=== PATIENT | female | born 1985 | race Hispanic/Latino ===

== ENCOUNTER 2020-03-21 21:36 | Emergency (ER) | payer BC, MEDICAID, OTHER ==
[2020-03-22] MEDS ORDERED: ONDANSETRON HCL 4 MG/2 ML VIAL ONE (00:20)
[2020-03-22] MEDS ORDERED: METOCLOPRAMIDE 10 MG/2 ML VIAL ONE (00:22)
[2020-03-22] MEDS ORDERED: DiphenhydrAMINE HCL 50 MG/ML VIAL ONE (00:33)
== END 2020-03-22 01:16 | disposition home or self-care (01) ==
LOC: EDH 21:36
DX: O99.011 Anemia complicating pregnancy, first trimester (principal); O26.891 Other specified pregnancy related conditions, first trimester; B34.9 Viral infection, unspecified; M54.5 Low back pain; R11.0 Nausea; Z98.890 Other specified postprocedural states; Z3A.01 Less than 8 weeks gestation of pregnancy
CPT/HCPCS: 36415; 80053; 81001; 85025; 87880; 96374; 96375; 99284; J1200; J2405; J2765

== ENCOUNTER 2020-03-23 11:51 | Observation (INO) | payer MEDICAID, OTHER ==
[~2020-03-23] VITALS: Ht 147.3 cm; Wt 66.7 kg
[2020-03-23 12:42] LABS: BASOPHILS % (AUTO) 0.3 % (0.0-5.0); EOSINOPHILS % (AUTO) 0.8 % (0.0-8.0); HEMATOCRIT 28.7 % (36-48); MEAN CORPUSCULAR HEMOGLOBIN 16.3 pg (27.0-33.0); MEAN CORPUSCULAR HGB CONC 27.2 g/dL (32.0-36.0); MEAN CORPUSCULAR VOLUME 59.9 fL (79-99); NEUTROPHILS % (AUTO) 73.6 % (40.0-77.0); PLATELET COUNT (AUTO) 215 K/uL (130-400); RED BLOOD CELL COUNT(AUTO) 4.79 MIL/uL (4.00-5.50); RED CELL DISTRIBUTION WIDTH 20.2 % (11.0-15.5); WHITE BLOOD COUNT (AUTO) 6.3 K/uL (4.8-10.8)
[2020-03-23 13:07] LABS: CREATININE 0.7 mg/dL (0.5-1.5); POTASSIUM 3.6 mmol/L (3.5-5.1)
[2020-03-23 13:12] LABS: ALBUMIN 3.3 g/dL (3.5-5.0); BILIRUBIN,TOTAL 0.3 mg/dL (0.2-1.0); TOTAL PROTEIN, SERUM 7.4 g/dL (6.0-8.3)
--- NOTE | 2020-03-23 13:18 | NUR ---
DCP: HOME Sw spoke to pt's mother Honey Osborne [phone]. Mother reports that pt lives with her 2 minor daughters who are have been with with their father since pt began feeling sick. Pt is unemployed, independent, drives, no DME or in home care services. Pt has no PCP. Plan is home at al Addendum: 03/23/20 at 1320 by TENZIN VANCE Amended: Links added.
[2020-03-23 15:54] VITALS: BP 99/58
--- NOTE | 2020-03-23 18:00 | NUR ---
ORDERS RECEIVED TO TRANSFER PRIMARY CARE TO DR. AYAKA OH, [facility]. DR. OH INFORMED AND STATED THERE WAS NO OB INDICATION TO TAKE OVER CARE FOR THE PT AT THIS TIME, UNLESS ANY ABNORMAL FINDINGS RELATED OBSTETRICALLY.
[2020-03-23 19:28] VITALS: BP 102/69
--- NOTE | 2020-03-23 20:00 | NUR ---
ISIAH DORADO NP INFORMED OF PT STATUS AND NEW ORDERS RECEIVED AT THIS TIME.
[2020-03-23 23:00] VITALS: BP 106/61
[2020-03-24 03:49] VITALS: BP 111/65
[2020-03-24 06:36] LABS: BASOPHILS % (AUTO) 0.4 % (0.0-5.0); EOSINOPHILS % (AUTO) 0.9 % (0.0-8.0); HEMATOCRIT 31.4 % (36-48); LYMPHOCYTES % (AUTO) 26.3 % (21.0-51.0); MEAN CORPUSCULAR HEMOGLOBIN 17.5 pg (27.0-33.0); MEAN CORPUSCULAR VOLUME 62.3 fL (79-99); MONOCYTES % (AUTO) 10.4 % (3.0-13.0); NEUTROPHILS % (AUTO) 61.3 % (40.0-77.0); PLATELET COUNT (AUTO) 194 K/uL (130-400); RED BLOOD CELL COUNT(AUTO) 5.04 MIL/uL (4.00-5.50); RED CELL DISTRIBUTION WIDTH 23.4 % (11.0-15.5); WHITE BLOOD COUNT (AUTO) 5.4 K/uL (4.8-10.8)
[2020-03-24 07:10] VITALS: BP 101/67
[2020-03-24 07:15] LABS: CREATININE 0.6 mg/dL (0.5-1.5); POTASSIUM 3.9 mmol/L (3.5-5.1)
--- NOTE | 2020-03-24 09:30 | NUR ---
PATIENT WAS DISCHARGED BY DR. AYAKA OH AND SCRIPT GIVEN FOR VITAMINS AND IRON AND ENCOURAGED PATIENT TO FOLLOW UP WITH AN OB/GN DOCTOR OF HER CHOICE FOR CARE.
[2020-03-24] MEDS: ONDANSETRON 4 MG TABLET PO PRN ×2 (11:00→19:58)
[2020-03-24 11:08] VITALS: BP 98/58
[2020-03-24 16:14] VITALS: BP 110/74
[2020-03-24 16:16] VITALS: BP 94/57
--- NOTE | 2020-03-24 19:10 | NUR ---
REPORT GIVEN TO DUC MARTÍNEZ AND PATIENT CARE TRANSFERED AT THIS TIME.
[2020-03-24 19:32] VITALS: BP 101/52
--- NOTE | 2020-03-24 19:42 | NUR ---
PATIENT; PATIENT ADVICE TO GO TO HER DOCTOR OF CHOICE FOR FOLLOW UP CHECK UP. DISCHARGES INSTRUCTION GIVEN. PRESCRIPTION GIVEN. Yanira STEEL MD ADVICE PATIENT TO FOLLOW UP WITH HER DOCTOR TO HAVE A THOROUGH CHECK UP. PATIENT VERBALIZES UNDERSTANDING.
--- NOTE | 2020-03-24 20:20 | NUR ---
PATIENT WAS TAKEN VIA W/C TO [facility]ILY [facility] AND WAS DISCHARGED TO HER MOTHER. PATIENT IS STABLE AND DENIES PAIN.
== END 2020-03-24 20:20 | disposition home or self-care (01) ==
LOC: EDH 11:51 → EDHIP 11:52 → WSH 13:40
PROVIDERS: ADMIT Internal Medicine Critical Care Medicine; ATTEND Internal Medicine Critical Care Medicine
DX: O99.011 Anemia complicating pregnancy, first trimester (principal); D64.9 Anemia, unspecified; Z90.49 Acquired absence of other specified parts of digestive tract; Z3A.01 Less than 8 weeks gestation of pregnancy
CPT/HCPCS: 36415 ×2; 36430; 71046; 76801; 80048; 80053; 85025 ×2; 85378; 86850; 86900; 86901; 86922; 99285; G0378 ×14; P9016; Q0162 ×2

== ENCOUNTER 2020-04-27 12:24 | Emergency (ER) | payer MEDICAID, OTHER | END 2020-04-27 14:05 | disposition home or self-care (01) | LOC: EDH 12:24 | DX: O20.0 Threatened abortion (principal); Z3A.11 11 weeks gestation of pregnancy; Z98.890 Other specified postprocedural states; Z90.49 Acquired absence of other specified parts of digestive tract | CPT/HCPCS: 76801 ==

== ENCOUNTER 2020-12-12 09:49 | Emergency (ER) | payer MEDICAID ==
[2020-12-12] MEDS ORDERED: SODIUM CHLORIDE 0.9% 1000ML 1,000 ML IV ONE (10:18)
[2020-12-12 10:32] LABS: BASOPHILS % (AUTO) 0.7 % (0.0-5.0); EOSINOPHILS % (AUTO) 5.7 % (0.0-8.0); HEMATOCRIT 40.8 % (36-48); LYMPHOCYTES % (AUTO) 20.4 % (21.0-51.0); MEAN CORPUSCULAR HEMOGLOBIN 26.9 pg (27.0-33.0); MEAN CORPUSCULAR HGB CONC 31.9 g/dL (32.0-36.0); MEAN CORPUSCULAR VOLUME 84.5 fL (79-99); PLATELET COUNT (AUTO) 211 K/uL (130-400); RED BLOOD CELL COUNT(AUTO) 4.83 MIL/uL (4.00-5.50); RED CELL DISTRIBUTION WIDTH 19.5 % (11.0-15.5); WHITE BLOOD COUNT (AUTO) 8.3 K/uL (4.8-10.8)
[2020-12-12 10:37] LABS: CREATININE 0.7 mg/dL (0.5-1.5)
[2020-12-12 10:42] LABS: ALBUMIN 3.6 g/dL (3.5-5.0); BILIRUBIN,TOTAL 0.3 mg/dL (0.2-1.0); TOTAL PROTEIN, SERUM 7.9 g/dL (6.0-8.3)
[2020-12-12 11:05] LABS: INR 1.03 (0.85-1.15); PROTHROMBIN TIME 11.2 SEC (9.6-11.6)
[2020-12-12 11:06] LABS: PARTIAL THROMBOPLASTIN TIME 27.3 SEC (26.3-35.5)
[2020-12-12] MEDS ORDERED: MEDROXYPROGESTERONE ACET 5 MG TAB PO ONE (13:45)
== END 2020-12-12 13:07 | disposition home or self-care (01) ==
LOC: EDH 09:49
DX: N93.9 Abnormal uterine and vaginal bleeding, unspecified (principal); R11.0 Nausea; R42 Dizziness and giddiness; Z90.49 Acquired absence of other specified parts of digestive tract; Z98.890 Other specified postprocedural states
CPT/HCPCS: 36415; 80053; 85025; 85610; 85730; 86850; 86900; 86901; 96360; 96361; 99283; J7030

== ENCOUNTER 2025-06-20 14:38 | Emergency (ER) | payer BC, MEDICAID ==
[~2025-06-20] VITALS: Ht 147.3 cm; Wt 77.1 kg
--- NOTE | 2025-06-20 14:53 | EKG ---
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
--- NOTE | 2025-06-20 15:17 | HMCIMG ---
EXAM: CR Chest, 1 View. CLINICAL HISTORY: gbw COMPARISON: 03/23/20 21:48 EDT DX - CHEST 2VWS FINDINGS: Patient's pelvis was shielded during exam. Cholecystectomy clips noted. LUNGS: The lungs show no infiltrate or other acute finding. PLEURAL SPACES: No pleural effusion or pneumothorax. MEDIASTINUM: The cardiomediastinal silhouette is within normal limits. BONES: No aggressive appearing osseous lesion seen. IMPRESSION: No acute cardiopulmonary pathology is evident. /[place]
[2025-06-20 15:28] LABS: IMMATURE GRANULOCYTE ABSOLUTE 0.06 K/uL (0-1); NUCLEATED RED BLOOD CELLS 0.0 % (0.0-0.19); PLATELET COUNT (AUTO) 316 K/uL (130-400); RED BLOOD CELL COUNT(AUTO) 4.76 MIL/uL (4.00-5.50); RED CELL DISTRIBUTION WIDTH 16.9 % (11.0-15.5); WHITE BLOOD COUNT (AUTO) 10.7 K/uL (4.8-10.8)
[2025-06-20 15:37] LABS: CREATININE 0.6 mg/dL (0.5-1.0); GLOMERULAR FILTR. RATE CALC 116.0 mL/min (>90); GLUCOSE,RANDOM 130.0 mg/dL (70-105); SODIUM SERUM 140.0 mmol/L (136-145); UREA NITROGEN, BLOOD 9.0 mg/dL (7-18)
[2025-06-20 15:38] LABS: INR 1.02 (0.85-1.15)
[2025-06-20 15:46] LABS: ASPARTATE AMINOTRANSFERASE 27.0 U/L (10-37); TOTAL PROTEIN, SERUM 6.7 g/dL (6.0-8.3)
[2025-06-20 17:00] VITALS: BP 110/60; PULSE 73; RESP 19; TEMP 98.3; O2SAT 100
--- NOTE | 2025-06-20 17:20 | ERN ---
ED Note History of Present Illness Stated Complaint: LOW HGB Chief Complaint: Abnormal Labs Time Seen by MD: 14:40 Dictation: 39-year-old female referred by her primary care doctor for outpatient labs that showed low hemoglobin patient reports she believes it was six but unsure does not have the paperwork. Patient does reports she has been feeling weak over the past few days but no active bleeding. Allergies: Coded Allergies: No Known Allergies (Verified Allergy, Unknown, 03/22/20) No Known Drug Allergies (Unverified Allergy, Unknown, 03/22/20) Home Meds No Active Prescriptions or Reported Meds Past Medical History Past Medical History: Other Additional Past Medical Hx: LUPUS Surgical History: Review of System Dictation Constitutional: Negative for fever,chills, and weight loss Eyes: Negative for injury, pain,redness, and discharge ENT: Negative for injury,pain or swelling Cardiovascular: Negative for chest pain, palpitations, and edema Respiratory: Negative for shortness of breath, cough, and wheezing, Abdomen/GI: Negative for abdominal pain, nausea, vomiting, diarrhea, and constipation Back: Negative for injury and pain : Negative for injury, bleeding and discharge MS/Extremity: Negative for injury and deformity Skin: Negative for rash, and discoloration Neuro: For HPI Initial Vital Sign VS Vital Signs Date Time Temp Pulse Resp B/P (MAP) Pulse Ox O2 Delivery O2 Flow Rate FiO2 06/20/25 14:39 98.2 107 18 132/69 99 Room Air Physical Exam Dictation General: awake, alert, NAD Head/Face: Normocephalic, atraumatic Eyes: PERRL, EOMI, vision at baseline ENT: oral cavity clear, TMs clear, no signs of infection Neck: Trachea midline, supple, no nuchal rigidity Cardiovascular: RRR, normal S1/S2, No MRGs, no JVD Respiratory: CTAB, no respiratory distress, No rales or wheezes Abdomen: Soft, non-tender, non-distended, normal bowel sounds, no guarding or rebound. Skin: Warm, dry, normal turgor, no rash MS/Extremity: Pulses equal, no cyanosis, neurovascular intact, FROM Neuro: COAx4, GCS 15, strength 5/5, CN 2-12 intact, normal cerebellar exam, normal gait, Psych: Normal behavior, mood, and affect normal Results (Laboratory/Radiology) Laboratory/Radiology Laboratory Tests Test 06/20/25 15:02 White Blood Count 10.7 K/uL (4.8-10.8) Red Blood Count 4.76 MIL/uL (4.00-5.50) Hemoglobin 9.8 g/dL (12.0-16.0) L Hematocrit 33.0 % (36-48) L Mean Corpuscular Volume 69.3 fL (79-99) L Mean Corpuscular Hemoglobin 20.6 pg (27.0-33.0) L Mean Corpuscular Hemoglobin Concent 29.7 g/dL (32.0-36.0) L Red Cell Distribution Width 16.9 % (11.0-15.5) H Platelet Count 316 K/uL (130-400) Mean Platelet Volume 10.0 fL (7.5-10.5) Immature Granulocyte % (Auto) 0.6 % (0-1) Neutrophils (%) (Auto) 65.4 % (40.0-77.0) Lymphocytes (%) (Auto) 24.3 % (21.0-51.0) Monocytes (%) (Auto) 5.3 % (3.0-13.0) Eosinophils (%) (Auto) 4.0 % (0.0-8.0) Basophils (%) (Auto) 0.4 % (0.0-5.0) Neutrophils # (Auto) 7.0 K/uL (1.8-7.7) Lymphocytes # (Auto) 2.6 K/uL (1.0-4.8) Monocytes # (Auto) 0.6 K/uL (0.1-1.0) Eosinophils # (Auto) 0.43 K/uL (0.00-0.70) Basophils # (Auto) 0.04 K/uL (0.00-0.20) Absolute Immature Granulocyte (auto 0.06 K/uL (0-1) Nucleated Red Blood Cells 0.0 % (0.0-0.19) Red Blood Cell Morphology See comments Prothrombin Time 10.8 SEC (9.6-11.6) Prothromb Time International Ratio 1.02 (0.85-1.15) Activated Partial Thromboplast Time 27.9 SEC (26.3-35.5) Sodium Level 140 mmol/L (136-145) Potassium Level 4.0 mmol/L (3.5-5.1) Chloride Level 106 mmol/L (101-111) Carbon Dioxide Level 27 mmol/L (21-32) Blood Urea Nitrogen 9 mg/dL (7-18) Creatinine 0.6 mg/dL (0.5-1.0) Glomerular Filtration Rate Calc 116 mL/min (>90) Random Glucose 130 mg/dL (70-105) H Total Calcium 7.9 mg/dL (8.5-10.1) L Total Bilirubin 0.2 mg/dL (0.2-1.0) Direct Bilirubin 0.1 mg/dL (0.0-0.3) Aspartate Amino Transf (AST/SGOT) 27 U/L (10-37) Alanine Aminotransferase (ALT/SGPT) 24 U/L (12-78) Alkaline Phosphatase 94 U/L (50-136) Troponin I High Sensitivity 9 ng/L (4-50) Total Protein 6.7 g/dL (6.0-8.3) Albumin 2.7 g/dL (3.5-5.0) L Labs Reviewed?: Yes ED Course ED Course Orders Procedure Category Date Status Time 12 Lead Ekg Tracing- EKG 06/20/25 Complete Technical 14:44 Basic Metabolic Panel LAB 06/20/25 Complete 14:44 Cbc With Differential LAB 06/20/25 Complete 14:44 Hepatic Function Panel LAB 06/20/25 Complete 14:44 Pt And Ptt LAB 06/20/25 Complete 14:44 Troponin I High LAB 06/20/25 Complete Sensitivity 14:44 Chest 1vw RAD 06/20/25 Resulted 14:44 Type And Screen BBK 06/20/25 In Process 14:44 Vital Signs Date Time Temp Pulse Resp B/P (MAP) Pulse Ox O2 Delivery O2 Flow Rate FiO2 06/20/25 14:39 98.2 107 18 132/69 99 Room Air Medical Decision Making MDM MDM: Differential diagnosis: Rationale: Tests considered and ordered secondary to shared decision making include: Previous outside records reviewed: Old ER visits. Risk of complication and/or morbidity or mortality of patient management: None Medications-Per medication reconciliation Need for hospitalization: Patient does not meet criteria for hospitalization. Need for emergency major/minor surgery: No There are no social concerns with this patient. Prescription drug management Prescriptions will include symptomatic care Patient's prior external medical records from other ER visits were reviewed by me as indicated. Prior testing and results from previous visits were reviewed. Prior tests were taken into account with medical decision making and resource utilization, independent historian/historians were used to obtain complete medical history. I independently interpreted the test that were performed, results were reviewed by me and considered findings on radiology if ordered. Medical management and examination interpretation discussions were had by me with other qualified healthcare professionals as indicated for the patient's care. 39-year-old female presenting to the emergency department for low hemoglobin vital signs stable no active bleeding repeat labs here show hemoglobin of 10 this is not a level requiring for transfusion at patient is stable for discharge and outpatient follow up DX & DISP Disposition: Discharge Departure Impression: Primary Impression: Chronic anemia Condition: Stable Scripts No Active Prescriptions or Reported Meds Referrals: DWIGHT PURCELL (PCP) NELA CORONA MD Jun 20, 2025 17:20
== END 2025-06-20 17:37 | disposition home or self-care (01) ==
LOC: EDH 14:38
DX: D64.9 Anemia, unspecified (principal)
CPT/HCPCS: 36415; 71045; 80048; 80076; 84484; 85025; 85610; 85730; 86850; 86900; 86901; 93005; 99284